=== PATIENT | male | born 1935 | race Caucasian/White ===

== ENCOUNTER 2023-10-23 11:00 | Day surgery (SDC) | payer OTHER, BC ==
--- NOTE | 2023-10-22 15:34 | RAD REPORT ---
EXAM DESCRIPTION: Sharon Barba And Merrick (2 Views)10/22/2023 3:14 pm CLINICAL HISTORY: Preop for cardiac catheterization COMPARISON: None FINDINGS: The lungs appear clear of acute infiltrate. The heart is normal size IMPRESSION: No acute abnormalities displayed
[2023-10-22 16:04] LABS: Absolute Basophils 0.1 K/uL (0-0.5); Absolute Eosinophils 0.3 K/uL (0-0.5); Absolute Lymphocytes (CBC) 1.7 K/uL (0.7-4.9); Absolute Monocytes 0.5 K/uL (0.1-1.3); Absolute Neutrophil 4.2 K/uL (1.8-8.0); Basophils % 0.8 % (0-1.3); Eosinophils % 4.1 % (0-4.4); Hematocrit 33.9 % (39.6-49.0); Hemoglobin 11.2 g/dL (13.6-17.9); Lymphocytes % 24.7 % (15.3-44.8); MCH 32.9 pg (27.0-35.0); MCHC 33.2 g/dL (32.0-36.0); MCV 99.2 fL (80-100); MPV 7.6 fL (7.6-11.3); Monocytes % 7.7 % (3.3-12.3); Neutrophils % 62.7 % (41.7-73.7); Platelets 273 thou/uL (152-406); RBC Red Blood Cell Count 3.41 M/uL (4.33-5.43); Red Cell Distribution Width 13.3 % (12.1-15.2)
[2023-10-22 16:12] LABS: PT Prothrombin Time 10.6 SECONDS (9.4-12.5); Protime INR 0.94
[2023-10-22 16:19] LABS: Anion Gap 7.1 mEq/L (5.0-15.0); Potassium 4.1 mEq/L (3.5-5.1)
[2023-10-23] MEDS ORDERED: NA CHLORIDE 0.9% 500 ML ONE (11:12)
[2023-10-23] MEDS ORDERED: HEPA 1000U/500MLS 2,000 UNIT/1,000 ML BAG IV ONE (14:36)
[2023-10-23] MEDS ORDERED: HEPARIN 5000 UNIT/ML 1 ML VIAL ONE ×2 (14:37→15:10)
[2023-10-23] MEDS ORDERED: LIDOCAINE 1% 20 ML MDV ONE (14:37)
[2023-10-23] MEDS ORDERED: ATROPINE SULF 1 MG/10 ML SYR IV ONE (14:37)
[2023-10-23] MEDS ORDERED: VERAPAMIL HCL 10 MG/4 ML VIAL IV ONE (14:37)
[2023-10-23] MEDS ORDERED: FENTANYL CITR 100 MCG/2 ML ONE (14:37)
[2023-10-23] MEDS ORDERED: TICAGRELOR 90 MG TABLET PO ONE (14:37)
[2023-10-23] MEDS ORDERED: MIDAZOLAM HCL 2 MG/2 ML INJ ONE (14:37)
[2023-10-23] MEDS ORDERED: CLOPIDOGREL 75 MG TABLET ONE (14:38)
[2023-10-23] MEDS ORDERED: ASPIRIN 325 MG TAB ONE (14:38)
[2023-10-23] MEDS ORDERED: HEPARIN 10,000 UNIT/10 ML VIAL IV ONE (14:38)
[2023-10-23 16:53] VITALS: TEMP 97.5
--- NOTE | 2023-10-23 17:51 | OP ---
Date of Procedure: 10/23/2023 Surgeon: ALICIA INFANTE Procedures Performed: 1.Selective coronary angiogram. 2.Left heart catheterization. 3.Right heart catheterization. Indication: Aortic valve stenosis evaluation. Access: 1.Right radial artery 6-Australian closed with TR band. 2.Right IJ 7-Australian closed with manual pressure. Complications: None. Bleeding: Less than 50 mL. Anesthesia: Total sedation time is 1 hour. Description Of Procedure: After risks, benefits, and alternatives were explained, patient agreed to the procedure and signed informed consent. The patient was brought into cardiac catheterization [facility], prepped and draped in the usual sterile fashion. Then, I accessed the right radial artery using pediatric micropuncture kit, placed a 6-Australian Slender sheath. Then, I accessed right IJ using micropuncture kit and ultrasound guidance, and placed a 7-Australian Sebree sheath and t ook a 7-Australian balloon-tipped Durand catheter into the right atrium, right ventricle, pulmonary artery, and wedge to obtain waveform and pressure and then obtained cardiac output by thermodilutional metho d and then removed the Durand and then took a 6-Australian JL4 catheter, engaged the left main, took standa rd views, and exchanged for 6-Australian JR4 catheter and did nonselective injection of the RCA. It is s mall, nondominant, and then crossed the aortic valve and placed the Tato catheter in the LV and m easured simultaneous pressure of the LV and the aorta and the pullback did not record any gradient. Then I removed the catheter and the sheath, placed TR band with good hemostasis in the wrist. Remove d the IJ sheath and placed manual pressure for closure with good hemostasis. Findings: 1.Coronary angiogram: a.Left main; very large and normal. b.LAD; very large vessel. Proximal segment is normal. Mid diffuse has 50% stenosis, and the rest o f the LAD is normal. Normal diagonal branches. c.Left circumflex; very large and dominant. Proximal segment is normal and the OM takes off and the re is proximal 60% stenosis and after the takeoff of the OM, there is focal 40% stenosis of left circ . d.RCA; small, nondominant. No significant disease. 2.Right heart cath numbers: RA pressure is 11. RV pressure is 38/7, mean of 13. PA pressure is 38 /16, mean of 25. Pulmonary wedge pressure was 50 mmHg and the LVEDP was 25 mmHg. Cardiac output was average 5.5 L/minute. Mean gradient across aortic valve was 21 mmHg. Aortic valve area is 1.1 sq c m. Conclusions: 1.Moderate coronary artery disease. 2.Elevated filling pressures. 3.Moderate aortic valve stenosis. Recommendation: Repeat evaluation in 6 months. /ANDREI Voice ID: [id number] Report ID: [id number]
[2023-10-23 19:10] VITALS: O2SAT 97
[2023-10-23 19:25] VITALS: BP 155/67
--- NOTE | 2023-10-24 16:31 | EKG ---
Test Date: 2023-10-22 Test Time: 14:56:24 [employer] Nutritionist: FERNANDO MEASUREMENT RESULTS: Intervals: Rate: 65 GA: 170 QRSD: 94 QT: 452 QTc: 470 Leopold: P: 57 GA: 170 QRS: 70 T: 47 INTERPRETIVE STATEMENTS: Normal sinus rhythm Normal ECG Compared to ECG 03/17/2003 09:41:00 No significant changes Electronically Signed On 10-24-23 16:30:11 CDT by Louie Morejon
== END 2023-10-23 19:29 | disposition home or self-care (01) ==
LOC: CCL 11:00
PROVIDERS: ATTEND Internal Medicine
DX: I35.2 Nonrheumatic aortic (valve) stenosis with insufficiency (principal); I25.10 Atherosclerotic heart disease of native coronary artery without angina pectoris; I48.0 Paroxysmal atrial fibrillation; I10 Essential (primary) hypertension; E78.5 Hyperlipidemia, unspecified; E03.9 Hypothyroidism, unspecified; F17.290 Nicotine dependence, other tobacco product, uncomplicated; Z79.01 Long term (current) use of anticoagulants; Z79.899 Other long term (current) drug therapy; Z82.49 Family history of ischemic heart disease and other diseases of the circulatory system
CPT/HCPCS: 93005; 85025; 80048; 36415; 85610; 85730; 71046; 93460; 76937; C1893; Q9967; J1644 ×2; J2001; J2250; J3010; J7040; 99152; J0461